=== PATIENT | male | born 1990 | race Caucasian/White ===

== ENCOUNTER 2017-03-12 02:08 | Inpatient (IN) | payer SELFPAY ==
[2017-03-12] MEDS ORDERED: Albuterol/Ipratropium 3.0-0.5 MG/3 ML Neb Soln NEB ONE (02:32)
[2017-03-12] MEDS ORDERED: methylPREDNISolone Sodium Succinate 125 MG/2 ML SDV IVPUSH ONE (02:32)
--- NOTE | 2017-03-12 02:34 | EDM.PDOC ---
ED HPI GENERAL MEDICAL PROBLEM - General Chief Complaint: Respiratory Problem Stated Complaint: SICK Time Seen by Provider: 03/12/17 02:34 Source of Information: Reports: Patient - History of Present Illness INITIAL COMMENTS - FREE TEXT/NARRATIVE: HISTORY AND PHYSICAL: History of present illness: []Patient with history of HIV presents with shortness of breath and fever, he has not had any medical treatment since last May while awaiting health insurance Complains of fever and shortness of breath no nausea vomiting He's not had any CD4 count were any medical treatment as above Noted be hypoxic O2 sat 55% on room air improved to 85% with 5 L nasal cannula improving further post DuoNeb and Solu-Medrol to 95% on 5 L nasal cannula Review of systems: As per history of present illness and below otherwise all systems reviewed and negative. Past medical history: As per history of present illness and as reviewed below otherwise noncontributory. Surgical history: As per history of present illness and as reviewed below otherwise noncontributory. Social history: No reported history of drug or alcohol abuse. Family history: As per history of present illness and as reviewed below otherwise noncontributory. Physical exam: HEENT: Atraumatic, normocephalic, pupils reactive, negative for conjunctival pallor or scleral icterus, mucous membranes moist, throat clear, neck supple, nontender, trachea midline. Lungs: Clear to auscultation, breath sounds equal bilaterally, chest nontender. Heart: S1S2, regular, negative for clicks, rubs, or JVD. Abdomen: Soft, nondistended, nontender. Negative for masses or hepatosplenomegaly. Negative for costovertebral tenderness. Pelvis: Stable nontender. Genitourinary: Deferred. Rectal: Deferred. Extremities: Atraumatic, negative for cords or calf pain. Neurovascular unremarkable. Neuro: Awake, alert, oriented. Cranial nerves II through XII unremarkable. Cerebellum unremarkable. Motor and sensory unremarkable throughout. Exam nonfocal. Diagnostics: []Lab as below Chest 1 view EKG Therapeutics: []DuoNeb Solu-Medrol Normal saline 1 L bolus 1 25 mL per hour Zosyn 3.375 g IV Vancomycin 1 g IV Diflucan 1 g IV Bactrim double strength by mouth now Acetaminophen 500 mg by mouth now Impression: Hypoxia []Fever Shortness of breath Tachycardia Hypotension HIV Definitive disposition and diagnosis as appropriate pending reevaluation and review of above. chest area Pain Score (Numeric/FACES): 7 - Related Data Allergies Allergy/AdvReac Type Severity Reaction Status Date / Time No Known Allergies Allergy Verified 03/12/17 02:21 Home Meds: Home Meds . [No Known Home Meds] 03/12/17 [History] ED ROS GENERAL - Review of Systems Review Of Systems: ROS reveals no pertinent complaints other than HPI. ED EXAM, GENERAL - Physical Exam Exam: See Below Course - Vital Signs Last Recorded V/S: Last Vital Signs Temp 37.8 C 03/12/17 03:21 Pulse 121 H 03/12/17 03:31 Resp 46 H 03/12/17 03:31 BP 107/61 03/12/17 03:31 Pulse Ox 94 L 03/12/17 03:31 - Orders/Labs/Meds Orders: Active Orders 24 hr Category Date Time Status EKG Documentation Completion [RC] STAT Care 03/12/17 02:33 Active RT Aerosol Therapy [RC] ASDIRECTED Care 03/12/17 02:33 Active Chest 1V Frontal [CR] Stat Exams 03/12/17 02:32 Taken CULTURE BLOOD [BC] Stat Lab 03/12/17 02:45 Received CULTURE BLOOD [BC] Stat Lab 03/12/17 02:51 Received Sodium Chloride 0.9% [Normal Saline] 1,000 ml Med 03/12/17 02:45 Active IV STAT Sodium Chloride 0.9% [Normal Saline] 1,000 ml Med 03/12/17 02:48 Active IV STAT Vancomycin [Vancocin] 1 gm Med 03/12/17 02:48 Active Sodium Chloride 0.9% [Normal Saline] 250 ml IV ONETIME Blood Culture x2 Reflex Set [OM.PC] Stat Oth 03/12/17 02:32 Ordered Medication Orders Sodium Chloride (Normal Saline) 1,000 mls @ 125 mls/hr IV STAT RAMON Last Admin: 03/12/17 02:54 Dose: 125 mls/hr Sodium Chloride (Normal Saline) 1,000 mls @ 999 mls/hr IV STAT ONE Stop: 03/12/17 03:48 Last Admin: 03/12/17 02:54 Dose: 999 mls/hr Vancomycin HCl 1 gm/ Sodium (Chloride) 250 mls @ 250 mls/hr IV ONETIME ONE Stop: 03/12/17 03:47 Last Admin: 03/12/17 03:15 Dose: 250 mls/hr Labs: Laboratory Tests 03/12/17 03/12/17 03/12/17 Range/Units 02:44 02:45 02:45 WBC 12.57 H (4.0-11.0) K/uL RBC 6.04 H (4.50-5.90) M/uL Hgb 12.2 L (13.0-17.0) g/dL Hct 37.5 L (38.0-50.0) % MCV 62.1 L (80.0-98.0) fL MCH 20.2 L (27.0-32.0) pg MCHC 32.5 (31.0-37.0) g/dL RDW Std Deviation 34.2 (28.0-62.0) fl RDW Coeff of Vickie 16 H (11.0-15.0) % Plt Count 282 (150-400) K/uL Neut % (Auto) 86.8 H (48.0-80.0) % Lymph % (Auto) 7.7 L (16.0-40.0) % [place] % (Auto) 5.3 (0.0-15.0) % Eos % (Auto) 0.1 (0.0-7.0) % Baso % (Auto) 0.1 (0.0-1.5) % Neut # (Auto) 10.9 H (1.4-5.7) K/uL Lymph # (Auto) 1.0 (0.6-2.4) K/uL [place] # (Auto) 0.7 (0.0-0.8) K/uL Eos # (Auto) 0.0 (0.0-0.7) K/uL Baso # (Auto) 0.0 (0.0-0.1) K/uL Nucleated RBC % 0.0 /100WBC Nucleated RBCs # 0 K/uL Lactate (0.20-2.00) mmol/L Sodium 130 L (136-146) mmol/L Potassium 3.3 L (3.5-5.1) mmol/L Chloride 92 L (98-110) mmol/L Carbon Dioxide 28 (21-31) mmol/L BUN 13 (6.0-23.0) mg/dL Creatinine 0.8 (0.6-1.5) mg/dL Est Cr Clr Drug Dosing 121.99 mL/min Estimated GFR (MDRD) > 60.0 ml/min Glucose 93 (60-110) mg/dL Calcium 8.7 L (8.8-10.8) mg/dL Total Bilirubin 0.9 (0.1-1.5) mg/dL AST 45 H (5-40) IU/L ALT 29 (8-54) IU/L Alkaline Phosphatase 71 (40-150) Lactate Dehydrogenase (125-220) IU/L Total Protein 6.8 (6.0-8.0) g/dL Albumin 3.4 L (3.5-5.0) g/dL Globulin 3.4 (2.0-3.5) g/dL Albumin/Globulin Ratio 1.0 L (1.3-2.8) Urine Color YELLOW Urine Appearance CLEAR Urine pH 6.0 (5.0-8.0) Ur Specific [place] 1.020 (1.001-1.035) Urine Protein 30 (NEGATIVE) mg/dL Urine Glucose (UA) NEGATIVE (NEGATIVE) mg/dL Urine Ketones 15 H (NEGATIVE) mg/dL Urine Occult Blood NEGATIVE (NEGATIVE) Urine Nitrite NEGATIVE (NEGATIVE) Urine Bilirubin NEGATIVE (NEGATIVE) Urine Urobilinogen 2.0 H (<2.0) EU/dL Ur Leukocyte Esterase NEGATIVE (NEGATIVE) Urine RBC NONE SEEN (0-2/HPF) Urine WBC 0-1 (0-5/HPF) Ur Epithelial Cells RARE (NONE-FEW) Urine Bacteria RARE (NEGATIVE) Urine Mucus LIGHT (NONE-MOD) 03/12/17 03/12/17 Range/Units 02:45 02:45 WBC (4.0-11.0) K/uL RBC (4.50-5.90) M/uL Hgb (13.0-17.0) g/dL Hct (38.0-50.0) % MCV (80.0-98.0) fL MCH (27.0-32.0) pg MCHC (31.0-37.0) g/dL RDW Std Deviation (28.0-62.0) fl RDW Coeff of Vickie (11.0-15.0) % Plt Count (150-400) K/uL Neut % (Auto) (48.0-80.0) % Lymph % (Auto) (16.0-40.0) % [place] % (Auto) (0.0-15.0) % Eos % (Auto) (0.0-7.0) % Baso % (Auto) (0.0-1.5) % Neut # (Auto) (1.4-5.7) K/uL Lymph # (Auto) (0.6-2.4) K/uL [place] # (Auto) (0.0-0.8) K/uL Eos # (Auto) (0.0-0.7) K/uL Baso # (Auto) (0.0-0.1) K/uL Nucleated RBC % /100WBC Nucleated RBCs # K/uL Lactate 1.8 (0.20-2.00) mmol/L Sodium (136-146) mmol/L Potassium (3.5-5.1) mmol/L Chloride (98-110) mmol/L Carbon Dioxide (21-31) mmol/L BUN (6.0-23.0) mg/dL Creatinine (0.6-1.5) mg/dL Est Cr Clr Drug Dosing mL/min Estimated GFR (MDRD) ml/min Glucose (60-110) mg/dL Calcium (8.8-10.8) mg/dL Total Bilirubin (0.1-1.5) mg/dL AST (5-40) IU/L ALT (8-54) IU/L Alkaline Phosphatase (40-150) Lactate Dehydrogenase 722 H (125-220) IU/L Total Protein (6.0-8.0) g/dL Albumin (3.5-5.0) g/dL Globulin (2.0-3.5) g/dL Albumin/Globulin Ratio (1.3-2.8) Urine Color Urine Appearance Urine pH (5.0-8.0) Ur Specific [place] (1.001-1.035) Urine Protein (NEGATIVE) mg/dL Urine Glucose (UA) (NEGATIVE) mg/dL Urine Ketones (NEGATIVE) mg/dL Urine Occult Blood (NEGATIVE) Urine Nitrite (NEGATIVE) Urine Bilirubin (NEGATIVE) Urine Urobilinogen (<2.0) EU/dL Ur Leukocyte Esterase (NEGATIVE) Urine RBC (0-2/HPF) Urine WBC (0-5/HPF) Ur Epithelial Cells (NONE-FEW) Urine Bacteria (NEGATIVE) Urine Mucus (NONE-MOD) Meds: Medications Generic Name Dose Route Start Last Admin Trade Name Freq PRN Reason Stop Dose Admin Sodium Chloride 1,000 mls @ 125 mls/hr 03/12/17 02:45 03/12/17 02:54 Normal Saline IV 125 mls/hr STAT RAMON Administration Sodium Chloride 1,000 mls @ 999 mls/hr 03/12/17 02:48 03/12/17 02:54 Normal Saline IV 03/12/17 03:48 999 mls/hr STAT ONE Administration Vancomycin HCl 1 gm/ Sodium 250 mls @ 250 mls/hr 03/12/17 02:48 03/12/17 03: 15 Chloride IV 03/12/17 03:47 250 mls/hr ONETIME ONE Administration Discontinued Medications Generic Name Dose Route Start Last Admin Trade Name Bertha PRN Reason Stop Dose Admin Acetaminophen 500 mg 03/12/17 03:00 03/12/17 03:12 Tylenol Extra Strength PO 03/12/17 03:01 500 mg ONETIME ONE Administration Albuterol/Ipratropium 3 ml 03/12/17 02:32 03/12/17 02:54 Duoneb 3.0-0.5 Mg/3 Ml NEB 03/12/17 02:33 3 ml ONETIME ONE Administration Piperacillin Sod/Tazobactam 50 mls @ 100 mls/hr 03/12/17 02:48 03/12/17 02:54 Sod 3.375 gm/ Sodium Chloride IV 03/12/17 03:17 100 mls/hr ONETIME ONE Administration Methylprednisolone Sodium Succinate 125 mg 03/12/17 02:32 03/12/17 02:54 Solu-Medrol IVPUSH 03/12/17 02:33 125 mg ONETIME ONE Administration Trimethoprim/Sulfamethoxazole 1 tab 03/12/17 03:00 03/12/17 03:12 Septra Ds PO 03/12/17 03:01 1 tab ONETIME ONE Administration Departure - Departure Time of Disposition: 03:38 Disposition: Admitted As Inpatient 68 Condition: Poor Clinical Impression: Hypoxia, Fever - Discharge Information Forms: ED Department Discharge - My Orders Last 24 Hours: My Active Orders 03/12/17 02:32 Chest 1V Frontal [CR] Stat Blood Culture x2 Reflex Set [OM.PC] Stat 03/12/17 02:33 EKG Documentation Completion [RC] STAT RT Aerosol Therapy [RC] ASDIRECTED 03/12/17 02:45 CULTURE BLOOD [BC] Stat Sodium Chloride 0.9% [Normal Saline] 1,000 ml IV STAT 03/12/17 02:48 Sodium Chloride 0.9% [Normal Saline] 1,000 ml IV STAT Vancomycin [Vancocin] 1 gm Sodium Chloride 0.9% [Normal Saline] 250 ml IV ONETIME 03/12/17 02:51 CULTURE BLOOD [BC] Stat - Assessment/Plan Last 24 Hours: My Active Orders 03/12/17 02:32 Chest 1V Frontal [CR] Stat Blood Culture x2 Reflex Set [OM.PC] Stat 03/12/17 02:33 EKG Documentation Completion [RC] STAT RT Aerosol Therapy [RC] ASDIRECTED 03/12/17 02:45 CULTURE BLOOD [BC] Stat Sodium Chloride 0.9% [Normal Saline] 1,000 ml IV STAT 03/12/17 02:48 Sodium Chloride 0.9% [Normal Saline] 1,000 ml IV STAT Vancomycin [Vancocin] 1 gm Sodium Chloride 0.9% [Normal Saline] 250 ml IV ONETIME 03/12/17 02:51 CULTURE BLOOD [BC] Stat
[2017-03-12] MEDS ORDERED: Sodium Chloride 0.9% 1,000 ML IV SCH ×2 (02:45→05:15)
[2017-03-12] MEDS ORDERED: Piperacillin/Tazobactam 3.375 GM in Sodium Chloride 0.9% 50 ML IV ONE (02:48)
[2017-03-12] MEDS ORDERED: Sodium Chloride 0.9% 1,000 ML IV ONE (02:48)
[2017-03-12] MEDS ORDERED: Acetaminophen 500 MG Tab PO ONE (03:00)
[2017-03-12] MEDS ORDERED: Sulfamethoxazole/Trimethoprim 800-160 MG Tab PO ONE (03:00)
[2017-03-12 03:22] LABS: CHLORIDE,CL 92 mmol/L (98-110); SODIUM,NA 130 mmol/L (136-146)
[2017-03-12] MEDS ORDERED: Potassium Chloride 20 MEQ Tab.ER PO ONE (05:05)
[2017-03-12] MEDS ORDERED: Acetaminophen 500 MG Tab PO PRN (05:06)
[2017-03-12] MEDS ORDERED: Levofloxacin/Dextrose 5%-Water 750 MG in Premix Bag 1 BAG IV SCH (05:30)
[2017-03-12] MEDS: Albuterol/Ipratropium 3.0-0.5 MG/3 ML Neb Soln NEB SCH ×2 (06:47→10:32)
[2017-03-12] MEDS ORDERED: Piperacillin/Tazobactam 3.375 GM in Sodium Chloride 0.9% 50 ML IV SCH (09:00)
[2017-03-12] MEDS ORDERED: Sulfamethoxazole/Trimethoprim 800-160 MG Tab PO SCH ×2 (09:00→11:00)
--- NOTE | 2017-03-12 11:00 | CR ---
EXAM DATE: 03/12/17 PATIENT'S AGE: 27 Patient: KANNAN BERTRAND Facility: [place], [place] Site . Site : 1992 Study: XRay Chest [id number]/12/2017 3:13:27 AM Ordering Physician: Ally Cosby Final Report: INDICATION: Fever and shortness breath for 2 weeks. TECHNIQUE: Chest radiograph 1 view COMPARISON: None FINDINGS: Lung volumes are within normal limits. Patchy opacities in the bilateral upper and lower lung zones. Metallic density projects over the T11 vertebral body on this frontal AP view of the chest, likely external to patient. No pneumothorax. IMPRESSION: 1. Likely multifocal pneumonia. Dictated by Shakeel Whitaker MD @ 03/12/2017 3:20:04 AM Dictated by: Shakeel Whitaker MD @ 03/12/2017 03:20:10 (Electronic Signature) Report Signed by Proxy. [email or web address]
--- NOTE | 2017-03-12 11:14 | PCM.HP ---
H&P History of Present Illness - General Date of Service: 03/12/17 Admit Problem/Dx: Admission Diagnosis/Problem Admission Diagnosis/Problem Pneumonia Source of Information: Patient - History of Present Illness Initial Comments - Free Text/Narative: 27 yo male with history of HIV transmitted via inutero admitted for Hpoxia, SOB and Fever. It started two weeks ago when he quit smoking cigarettes. He started having cough, productive sputum, fever, chills. He did not have n/v/d, chest pain or other pertinent symptoms. He is not currently on any antiretroviral medications. He moved here from [place] 4 months ago. He is trying to get insurance to cover his medications. In the ED he was hypoxic of saturations 55% in RA. His sats were 85% on 5 L of oxygen. He was given duoneb, and solumedrol where sats were 95% on 5 liters of oxygen. He was given one gram of vancomycin and po bactrim. Blood, urine , sputum cultures obtained. He was admitted to ICU and started on fluid and treated for pneumonia. He was started on zosyn and levaquin. Cd4 count and viral loads pending. CXR showed mulitifocal infiltrates including upper and lower lobes. chest area Pain Score (Numeric/FACES): 8 - Related Data Allergies/Adverse Reactions: Allergies Allergy/AdvReac Type Severity Reaction Status Date / Time No Known Allergies Allergy Verified 03/12/17 02:21 Home Medications: Home Meds . [No Known Home Meds] 03/12/17 [History] Past Medical History HEENT History: Reports: None Cardiovascular History: Reports: None Respiratory History: Reports: Other (See Below) Other Respiratory History: lung disease. Unable to remember diagnosis Gastrointestinal History: Reports: None Genitourinary History: Reports: None Musculoskeletal History: Reports: None Neurological History: Reports: None Psychiatric History: Reports: None Endocrine/Metabolic History: Reports: None Hematologic History: Reports: None Immunologic History: Reports: HIV Other Immunologic History: Since Oncologic (Cancer) History: Reports: None Dermatologic History: Reports: None - Infectious Disease History Infectious Disease History: Reports: HIV-Human Immunodeficiency Virus - Past Surgical History Head Surgeries/Procedures: Reports: None Respiratory Surgical History: Reports: Other (See Below) Other Respiratory Surgeries/Procedures: lung surgery Social & Family History - Family History Family Medical History: Noncontributory - Tobacco Use Smoking Status *Q: Current Every Day Smoker Years of Tobacco use: 9 Packs/Tins Daily: 1 Used Tobacco, but Quit: Yes Month Tobacco Last Used: December 2016 Tobacco Use Comment: stated quit smoking 2 weeks ago - Caffeine Use Caffeine Use: Reports: None - Recreational Drug Use Recreational Drug Use: No H&P Review of Systems - Review of Systems: Review Of Systems: See Below General: Reports: Fever, Chills, Weakness, Fatigue, Night Sweats HEENT: Reports: No Symptoms Pulmonary: Reports: Shortness of Breath, Cough, Sputum Cardiovascular: Reports: No Symptoms Gastrointestinal: Reports: No Symptoms Genitourinary: Reports: No Symptoms Musculoskeletal: Reports: No Symptoms Skin: Reports: No Symptoms Psychiatric: Reports: No Symptoms Neurological: Reports: No Symptoms Exam - Exam Exam: See Below - Vital Signs Vital Signs: Last Vital Signs Temp 98.4 F 03/12/17 08:00 Pulse 121 H 03/12/17 04:10 Resp 33 H 03/12/17 10:00 BP 98/60 03/12/17 10:00 Pulse Ox 93 L 03/12/17 10:00 Weight: 62.2 kg - Exam General: Alert, Oriented, Cooperative, Mild Distress HEENT: Conjunctiva Clear, EOMI Neck: Supple, Trachea Midline Lungs: Normal Respiratory Effort, Decreased Breath Sounds Cardiovascular: Regular Rate, Regular Rhythm Abdomen: Normal Bowel Sounds, Soft Back Exam: Normal Inspection Extremities: Normal Inspection Neurological: Cranial Nerves Intact Neuro Extensive - Mental Status: Alert Psychiatric: Alert, Normal Affect - Patient Data Lab Results Last 24 hrs: Laboratory Results - last 24 hr 03/12/17 Range/Units 06:35 ABG pH 7.427 (7.35-7.45) ABG pCO2 45 (35-45) mmHG ABG pO2 75 (75-100) mmHG ABG HCO3 30 H (22-26) mEq/L ABG Total CO2 27.2 ABG Base Excess 4.7 H (-2.0-2.0) Result Diagrams: 03/12/17 02:45 03/12/17 02:45 *Q Meaningful Use (ADM) - VTE *Q VTE Criteria *Q: - Stroke *Q Stroke Criteria *Q: - AMI *Q AMI Criteria *Q: Problem List Initiated/Reviewed/Updated: Yes Orders Last 24hrs: Active Orders 24 hr Category Date Time Status Admission Status [Patient Status] [ADT] Routine ADT 03/12/17 04:20 Active Oxygen Therapy [RC] ASDIRECTED Care 03/12/17 04:58 Active RT Aerosol Therapy [RC] ASDIRECTED Care 03/12/17 05:06 Active Regular Diet [DIET] Diet 03/12/17 Breakfast Active CULTURE SPUTUM + SMEAR [RM] Stat Lab 03/12/17 10:45 Uncollected CULTURE URINE [RM] Routine Lab 03/12/17 02:44 Received VANCOMYCIN TROUGH [CHEM] Timed Lab 03/13/17 19:30 Ordered Acetaminophen [Tylenol Extra Strength] Med 03/12/17 05:06 Active 500 mg PO Q4H PRN Albuterol/Ipratropium [DuoNeb 3.0-0.5 MG/3 ML] Med 03/12/17 06:00 Active 3 ml NEB Q4HRRT Levofloxacin/Dextrose 5%-Water [Levaquin in D5W 750 MG/ Med 03/12/17 05:30 Active 150 ML] 750 mg Premix Bag 1 bag IV Q24H Piperacillin/Tazobactam [Piperacil-Tazobact] 3.375 gm Med 03/12/17 09:00 Active Sodium Chloride 0.9% [Normal Saline] 50 ml IV Q6H Sodium Chloride 0.9% [Normal Saline] 1,000 ml Med 03/12/17 05:15 Active IV ASDIRECTED Sulfamethoxazole/Trimethoprim [Septra DS] Med 03/12/17 11:00 Active 1 tab PO Q12H Vancomycin Pharmacy to Dose [Pharmacy to Dose - Med 03/12/17 05:15 Active Vancomycin] 1 dose .XX ASDIRECTED Vancomycin [Vancocin] 1 gm Med 03/12/17 12:00 Active Sodium Chloride 0.9% [Normal Saline] 250 ml IV Q8H Medication Orders Acetaminophen (Tylenol Extra Strength) 500 mg PO Q4H PRN PRN Reason: Fever Albuterol/Ipratropium (Duoneb 3.0-0.5 Mg/3 Ml) 3 ml NEB Q4HRRT [facility] Last Admin: 03/12/17 10:32 Dose: 3 ml Admin: 03/12/17 06:47 Dose: 3 ml Levofloxacin/Dextrose 750 mg/ (Premix) 150 mls @ 100 mls/hr IV Q24H [facility] Last Admin: 03/12/17 05:29 Dose: 100 mls/hr Piperacillin Sod/Tazobactam (Sod 3.375 gm/ Sodium Chloride) 50 mls @ 100 mls/ hr IV Q6H [facility] Last Admin: 03/12/17 08:16 Dose: 100 mls/hr Sodium Chloride (Normal Saline) 1,000 mls @ 100 mls/hr IV ASDIRECTED [facility] Last Admin: 03/12/17 05:29 Dose: 100 mls/hr Vancomycin HCl 1 gm/ Sodium (Chloride) 250 mls @ 166 mls/hr IV Q8H [facility] Last Admin: 03/12/17 11:00 Dose: 166 mls/hr Trimethoprim/Sulfamethoxazole (Septra Ds) 1 tab PO Q12H [facility] Last Admin: 03/12/17 10:32 Dose: 1 tab Vancomycin HCl (Pharmacy To Dose - Vancomycin) 1 dose .XX ASDIRECTED [facility] Assessment/Plan Comment:: 27 yo male with HIV admitted for hypoxia, sob, fever: most likely pneumonia. started zosyn, levaquin I.V IVF at 125 ml/hr check sputum cx, blood cx, urine cx Close hemodynamic monitoring and supplementary oxygen DVT prophylaxis: lovenox consider transfer to [place] where Infectious disease present.
[2017-03-12] MEDS ORDERED: Enoxaparin 40 MG/0.4 ML Syringe SUBCUT SCH (11:45)
[2017-03-12] MEDS ORDERED: Potassium Chloride 10% 20 MEQ/15 ML Soln 30 ML UD Cup PO SCH (12:00)
[2017-03-12] MEDS ORDERED: methylPREDNISolone Sodium Succinate 125 MG/2 ML SDV IVPUSH SCH (12:00)
--- NOTE | 2017-03-12 12:15 | PCM.DCSUM1 ---
Discharge Summary - Hospital Course Brief History: He was admitted with hypoxia and bilateral infiltrates on CXR c/ w bilateral multifocal pneumonia. - Discharge Data Discharge Date: 03/12/17 Discharge Disposition: DC/Tfer to Acute Hospital 02 Condition: Fair - Patient Summary/Data Hospital Course: He was admitted to the ICU. His oxygen saturation was in the 70's on RA in the ED. His oxygen saturation is 90% on high flow nasal canula oxygen in the ICU. He was started on bactrim DS 2 po in the ED and a dose of solumedrol was given. Also started was levaquin, zosyn, and vancomycin. 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 He has been off all antiviral drugs for at least several months. He recently moved here from [place]. He quit smoking two years ago. I spoke with , infectious disease specialist who advised transfer to [facility] where he will consult on the case. I also spoke with Dr. Walker , hospitalist, who recommended transfer through the ED. I also spoke with Dr Sanchez in the emergency department [facility] who agreed to accept patient. Shakeel Walter MD - Discharge Plan Home Medications: Home Meds . [No Known Home Meds] 03/12/17 [History] Forms: ED Department Discharge Referrals: PCP,None [Primary Care Provider] - - Patient Data Vitals - Most Recent: Last Vital Signs Temp 98.4 F 03/12/17 08:00 Pulse 121 H 03/12/17 04:10 Resp 33 H 03/12/17 10:00 BP 98/60 03/12/17 10:00 Pulse Ox 93 L 03/12/17 10:00 Weight - Most Recent: 62.2 kg I&O - Last 24 hours: Intake & Output 03/11/17 03/12/17 03/12/17 22:59 06:59 14:59 Intake Total 550 200 Balance 550 200 Lab Results - Last 24 hrs: Laboratory Results - last 24 hr 03/12/17 Range/Units 06:35 ABG pH 7.427 (7.35-7.45) ABG pCO2 45 (35-45) mmHG ABG pO2 75 (75-100) mmHG ABG HCO3 30 H (22-26) mEq/L ABG Total CO2 27.2 ABG Base Excess 4.7 H (-2.0-2.0) Med Orders - Current: Current Medications Acetaminophen (Tylenol Extra Strength) 500 mg PO Q4H PRN PRN Reason: Fever Albuterol/Ipratropium (Duoneb 3.0-0.5 Mg/3 Ml) 3 ml NEB Q4HRRT [facility] Last Admin: 03/12/17 10:32 Dose: 3 ml Enoxaparin Sodium (Lovenox) 40 mg SUBCUT Q24H [facility] Levofloxacin/Dextrose 750 mg/ (Premix) 150 mls @ 100 mls/hr IV Q24H [facility] Last Admin: 03/12/17 05:29 Dose: 100 mls/hr Piperacillin Sod/Tazobactam (Sod 3.375 gm/ Sodium Chloride) 50 mls @ 100 mls/ hr IV Q6H [facility] Last Admin: 03/12/17 08:16 Dose: 100 mls/hr Sodium Chloride (Normal Saline) 1,000 mls @ 100 mls/hr IV ASDIRECTED [facility] Last Admin: 03/12/17 05:29 Dose: 100 mls/hr Vancomycin HCl 1 gm/ Sodium (Chloride) 250 mls @ 166 mls/hr IV Q8H [facility] Last Admin: 03/12/17 11:00 Dose: 166 mls/hr Methylprednisolone Sodium Succinate (Solu-Medrol) 125 mg IVPUSH Q6H [facility] Potassium Chloride (Potassium Chloride) 40 meq PO DAILY [facility] Trimethoprim/Sulfamethoxazole (Septra Ds) 1 tab PO Q12H [facility] Last Admin: 03/12/17 10:32 Dose: 1 tab Vancomycin HCl (Pharmacy To Dose - Vancomycin) 1 dose .XX ASDIRECTED [facility] Discontinued Medications Acetaminophen (Tylenol Extra Strength) 500 mg PO ONETIME ONE Stop: 03/12/17 03:01 Last Admin: 03/12/17 03:12 Dose: 500 mg Albuterol/Ipratropium (Duoneb 3.0-0.5 Mg/3 Ml) 3 ml NEB ONETIME ONE Stop: 03/12/17 02:33 Last Admin: 03/12/17 02:54 Dose: 3 ml Sodium Chloride (Normal Saline) 1,000 mls @ 125 mls/hr IV STAT [facility] Last Admin: 03/12/17 02:54 Dose: 125 mls/hr Piperacillin Sod/Tazobactam (Sod 3.375 gm/ Sodium Chloride) 50 mls @ 100 mls/ hr IV ONETIME ONE Stop: 03/12/17 03:17 Last Admin: 03/12/17 02:54 Dose: 100 mls/hr Sodium Chloride (Normal Saline) 1,000 mls @ 999 mls/hr IV STAT ONE Stop: 03/12/17 03:48 Last Admin: 03/12/17 02:54 Dose: 999 mls/hr Vancomycin HCl 1 gm/ Sodium (Chloride) 250 mls @ 250 mls/hr IV ONETIME ONE Stop: 03/12/17 03:47 Last Admin: 03/12/17 03:15 Dose: 250 mls/hr Methylprednisolone Sodium Succinate (Solu-Medrol) 125 mg IVPUSH ONETIME ONE Stop: 03/12/17 02:33 Last Admin: 03/12/17 02:54 Dose: 125 mg Potassium Chloride (Klor-Con M20) 40 meq PO ONETIME ONE Stop: 03/12/17 05:06 Last Admin: 03/12/17 05:29 Dose: 40 meq Trimethoprim/Sulfamethoxazole (Septra Ds) 1 tab PO ONETIME ONE Stop: 03/12/17 03:01 Last Admin: 03/12/17 03:12 Dose: 1 tab Trimethoprim/Sulfamethoxazole (Septra Ds) 1 tab PO BID RAMON *Q Meaningful Use (DIS) - VTE *Q VTE Criteria *Q: - Stroke *Q Stroke Criteria *Q: - AMI *Q AMI Criteria *Q:
[2017-03-12 12:49] VITALS: BP 112/63
== END 2017-03-12 13:34 | DRG 976 ==
LOC: MW.ED 02:08 → MW.ICU 03:41
PROVIDERS: ADMIT Family Medicine; ATTEND Family Medicine
DX: J18.9 Pneumonia, unspecified organism (principal); B20 Human immunodeficiency virus [HIV] disease
CPT/HCPCS: 36415; 36600; 71010; 71010-26; 80053; 81001; 82803; 83605; 83615; 85025; 86361; 87040; 87070; 87086; 87205; 93005; 94640; 94664; 96365; 96367; 96375; 99282; 99285-25; A9270-GY; J1650; J1956; J2543; J2930; J3370; J7040; J7050